=== PATIENT | male | born 1940 | race Caucasian/White ===

== ENCOUNTER 2016-07-11 15:59 | Observation (INO) | payer MEDICARE, OTHER ==
[~2016-07-11] VITALS: Ht 182.9 cm; Wt 99.2 kg
[2016-07-11 16:06] VITALS: BP 173/95; PULSE 88; RESP 16; O2SAT 98
--- NOTE | 2016-07-11 16:37 | ED.REPORT ---
HPI-General Illness Date of Service Jul 11, 2016 ED Provider: Dr. Beard Patient is a 75 year old male with stage 3 kidney disease, previous aortic valve replacement and mitral repair is referred to the ED by his PCP due to lightheadedness. He was driving to the gym at 1030 this morning when felt as though he would lose consciousness. He pulled over and waited for 15 minutes before continuing to drive to the gym. He is unsure if he passed out entirely during that time. The patient completed a light work out but had a general feeling of being unwell throughout, including nausea. When he took his blood pressure and heart rate 1.5 hours after his near syncopal episode, both were normal. He denies chest pain, abnormal shortness of breath, abdominal pain, dysuria, diaphoresis, hematemesis, black stools or bloody stools. He takes aspirin daily but denies use of any other blood thinners. Nursing Notes Stated Complaint: HEART Chief Complaint: General Complaint Nursing Notes Reviewed: Yes Allergies: Coded Allergies: No Known Allergies (Unverified , 07/11/16) Scheduled Amlodipine (Amlodipine) 5 Mg Tablet 5 MG PO HS Aspirin (Aspirin) 325 Mg Tablet 325 MG PO DAILYWD Carvedilol (Carvedilol) 12.5 Mg Tablet 12.5 MG PO BIDWM Cholecalciferol (Vitamin D3) (Vitamin D3) 2,000 Unit Tablet 2,000 UNIT PO QAM Dextran 70/Hypromellose (Nature's Tears Eye Drops) 0.1 %-0.3 % Drops 2 DROP BOTH _EYES QAM Finasteride (Finasteride) 5 Mg Tablet 5 MG PO HS Fish Oil/Dha/Epa (Fish Oil 1,200 mg Fish Oil) 1 Each Capsule 1 EACH PO QAM Furosemide (Furosemide) 40 Mg Tablet 40 MG PO QAM Indomethacin (Indomethacin) 50 Mg Capsule 50 MG PO BIDWM Multivit with Calcium,Iron,Min (Therapeutic M) 1 Each Tablet 1 EACH PO QAM Niacin (Inositol Niacinate) (Niacin 500 mg Capsule) 500 Mg Capsule 1,000 MG PO DAILYWD FLUSH FREE Pantoprazole DR (Pantoprazole DR) 40 Mg Tablet.dr 40 MG PO BIDWM Potassium Chloride (Potassium Chloride) 20 Meq Tab.er.prt 20 MEQ PO QAM Red Yeast Rice (Red Yeast Rice) 600 Mg Capsule 600 MG PO HS Tamsulosin ER (Tamsulosin ER) 0.4 Mg Cap.er.24h 0.8 MG PO HS Scheduled PRN Acetaminophen (Acetaminophen) 325 Mg Tablet 650 MG PO Q4H PRN PRN For Fever Hydrocortisone Acetate (Hydrocortisone) 28 Gm Oint...g. 1 APPLIC TP Q48H PRN PRN For Itching Zolpidem (Zolpidem) 10 Mg Tablet 10 MG PO HS PRN PRN For Sleep General Time Seen by MD: 16:36 Chief Complaint Other (Lightheadedness) Hx Obtained From: Patient Arrived By: Walk-in Sudden in Onset?: Yes Onset Occurred: 9 - 12 hours ago Recent Healthcare: No recent hospitalization, Recent doctor visit Similar Sx Previous: No Past Medical History Past Medical History Ulcer Cateracts Arthritis Normal echogram Stage 3 kidney disease Gout Reports: GERD, Hypertension Past Surgical History Aortic and mitral valve replacement surgery. Open heart surgery 12/2013. Ambulatory Status Independent Review of Systems Full Review of Systems Respiratory: Denies: Shortness of breath (not more than baseline) Cardiovascular: Denies: Chest pain GI: Reports: Nausea, Denies: Abdominal pain, Bloody/tarry stool Male: Denies Dysuria Skin: Denies Rash Neurologic: Reports: Lightheaded, Syncope (possible) Complete sys rev & neg: except as marked. Physical Exam Vital Signs Vital Signs Date Time Temp Pulse Resp B/P Pulse Ox O2 Delivery O2 Flow Rate FiO2 07/11/16 17:22 87 16 157/97 97 Room Air 07/11/16 17:11 79 14 150/82 97 Room Air 07/11/16 16:06 36.7 88 16 173/95 98 Room Air Initial VS: Reviewed General/Constitutional: Well-developed Head / Eyes: Atraumatic, Normocephalic, PERRL Skin: Warm, Dry, No cyanosis Neurologic: Alert, Oriented Psychiatric: Mood/affect normal, Behavior normal ENT: Atraumatic, Airway patent, Mucous membranes moist Neck: Atraumatic, Supple, Full range of motion Respiratory / Chest: Atraumatic, Breath sounds NL, Breath sounds = bilat, No respiratory distress midline thoracotomy scar Cardiovascular: Heart rate NL, Regular rhythm, Heart sounds NL no cords no peripheral edema Abdomen: Soft, Non-tender, BS normoactive no mass Interpretation & Diagnostics Lab Results Interpretation Result Diagram: 07/11/16 9903 07/11/16 1655 Test 07/11/16 16:55 White Blood Count 5.5th/mm3 (3.8-10.1) Red Blood Count 4.54mil/mm3 (4.40-5.80) Hemoglobin 14.2g/dL (13.8-17.2) Hematocrit 41.8% (41.0-50.0) Mean Corpuscular Volume 92.1fL (81-100) Mean Corpuscular Hemoglobin 31.3pg (27.0-35.0) Mean Corpuscular Hemoglobin Concent 34.0% (32.0-37.0) Red Cell Distribution Width 12.9% (12.3-15.4) Platelet Count 121bil/L (150-400) Neutrophils (%) (Auto) 60.4% (40-74) Lymphocytes (%) (Auto) 22.6% (14-46) Monocytes (%) (Auto) 13.3% (4-12) Eosinophils (%) (Auto) 3.1% (0-5) Basophils (%) (Auto) 0.4% (0-3) Sodium Level 139mEq/L (134-144) Potassium Level 4.9mEq/L (3.5-5.2) Chloride Level 102mEq/L (97-108) Carbon Dioxide Level 21mmol/L (18-29) Blood Urea Nitrogen 51mg/dL (8-27) Creatinine 2.30mg/dL (0.76-1.27) Estimat Glomerular Filtration Rate 30mL/min (>59) Glucose Level 118mg/dL (60-99) Lactic Acid Level 0.9mmol/L (0.4-2.0) Calcium Level 9.4mg/dL (8.5-10.1) Magnesium Level 2.6mg/dL (1.6-2.6) Total Bilirubin 0.3mg/dL (0.0-1.2) Aspartate Amino Transf (AST/SGOT) 20U/L (0-50) Alanine Aminotransferase (ALT/SGPT) 15U/L (0-44) Alkaline Phosphatase 65U/L (25-160) Troponin T < 0.010ug/L (0.0-0.011) Pro-B-Type Natriuretic Peptide 586.7pg/mL (0-486) Total Protein 7.2g/dL (6.4-8.4) Albumin 4.5g/dL (3.4-5.0) ECG Interpretation ECG Interpretation: Sinus rhythm Incomplete right bundle branch block Prolonged QT interval Time: 16:58 Interpreted by: ED physician Normal ECG Interpretation: Normal rate (81) X-Ray Chest Interpretation Chest Xray Interpretation: IMPRESSION: No acute process. Dictated by: Jovita Rodgers M.D. on 07/11/2016 at 17:39 Approved by: Jovita Rodgers M.D. on 07/11/2016 at 17:39 View: Portable, 1 view Interpretation / Wet Read by: Interpret - Radiologist Re-Eval/Medical Decision Med Decision/Clinical Course 75 year old male with syncopal event earlier today. Normal rhythm, not orthostatic, not infected. Given known structural heart diseasase will admit for obs on monitor. Pt is FULL CODE per my discussion with him today. Time of Eval: 18:14 Patient Status: Condition improved Re-Evaluation/Progress Note: Patients condition and lab results are discussed. Plan to adimt is discussed and the patient understands and agrees with the plan. All questions have been answered at this time. Consultation : Referral / Consult Name: Christiano Owens MD Consulted With: Hospitalist Call Returned at: 19:12 Hospital Security Officer: Will see patient, Agrees with plan, Accepts admit Note: Hospitalist is consulted and patient's case is discussed. He agrees to admit. Counseled Regarding: Diagnosis, Lab results, Need for admission Discharge & Departure Primary Impression: Syncope Syncope type: unspecified Qualified Code: R55 - Syncope and collapse Disposition: ADMITTED TO HOSPITAL Discharge Condition All VS Reviewed: Yes Condition: Stable Referrals: Abel Marquis MD (PCP) Scribe Attestation Portions of this note were transcribed by Sharath Winchester and Abelino Momin. I, Dr. Beard personally performed the history, physical exam and medical decision- making; I reviewed and confirmed the accuracy of the information in the transcribed note. Signed by: Sharath Winchester and Abelino Momin, Federicoibe, 2015 and 2117. copies to: Abel Marquis MD, Donald L MD Jul 11, 2016 16:37 Sharath Winchester Jul 11, 2016 16:45 ABELINO MOMIN Jul 11, 2016 19:49
[2016-07-11 17:01] LABS: BASOPHILS % (AUTO) 0.4 % (0-3); EOSINOPHILS % (AUTO) 3.1 % (0-5); MONOCYTES % (AUTO) 13.3 % (4-12); Mean Corpuscular Hemoglobin 31.3 pg (27.0-35.0); Mean Corpuscular Volume 92.1 fL (81-100); NEUTROPHILS % (AUTO) 60.4 % (40-74); Platelet Count 121 bil/L (150-400)
[2016-07-11 17:11] VITALS: BP 150/82; PULSE 79; RESP 14; O2SAT 97
[2016-07-11 17:22] VITALS: BP 157/97; PULSE 87; RESP 16; O2SAT 97
[2016-07-11 17:22] LABS: TROPONIN T < 0.010 ug/L (0.0-0.011)
[2016-07-11 17:33] LABS: Magnesium 2.6 mg/dL (1.6-2.6)
--- NOTE | 2016-07-11 17:41 | DRSVH ---
PROCEDURE: X-RAY CHEST ONE VIEW, PORTABLE ([id number]) INDICATIONS: syncope, Hx CHF and cardiac disease TECHNIQUE: One view of the chest was acquired. COMPARISON: [facility], CR, XR CHEST 1VW, 03/01/2015, 11:18. FINDINGS: Surgical changes and devices: Median sternotomy. Lungs and pleura: No pneumothorax. No change in right costophrenic angle blunting. Lungs are clear. Mediastinum: Mediastinal contours appear normal. Heart size is normal. Bones and chest wall: No suspicious bony lesions. Overlying soft tissues appear unremarkable. IMPRESSION: No acute process. Dictated by: Jovita Rodgers M.D. on 07/11/2016 at 17:39 Approved by: Jovita Rodgers M.D. on 07/11/2016 at 17:39
[2016-07-11] MEDS ORDERED: INDO50CA PO (18:43)
[2016-07-11] MEDS ORDERED: ASPI325T32 PO (18:43)
[2016-07-11] MEDS ORDERED: ZOLP10TA5 PO (18:43)
[2016-07-11] MEDS ORDERED: AMLO5TAB2 PO (18:43)
[2016-07-11] MEDS ORDERED: CARV12.52 PO (18:43)
[2016-07-11] MEDS ORDERED: FINA5TAB9 PO (18:43)
[2016-07-11] MEDS ORDERED: NIAC1CAP PO (18:43)
[2016-07-11] MEDS ORDERED: FURO40TA4 PO (18:43)
[2016-07-11] MEDS ORDERED: PANT40TA3 PO (18:43)
[2016-07-11] MEDS ORDERED: POTA20TA16 PO (18:43)
[2016-07-11] MEDS ORDERED: TAMS0.4C29 PO (18:43)
[2016-07-11 19:20] VITALS: BP 154/84; PULSE 79; RESP 14; O2SAT 96
[2016-07-11] MEDS ORDERED: Alum-Mag Hydrox-Simeth 30 mL Suspension PO PRN ×2 (19:25→20:00)
[2016-07-11] MEDS ORDERED: Ondansetron 2 mg/mL 2 mL Inj IVPUSH PRN ×2 (19:25→20:00)
[2016-07-11] MEDS ORDERED: RED600CA2 PO (19:36)
[2016-07-11] MEDS ORDERED: MULT-140 PO (19:36)
[2016-07-11] MEDS ORDERED: FISH1CAP15 PO (19:36)
[2016-07-11] MEDS ORDERED: CHOL200025 PO (19:36)
[2016-07-11] MEDS ORDERED: ACET325T51 PO (19:37)
[2016-07-11] MEDS ORDERED: DEXT15DR24 BOTH_EYES (19:37)
[2016-07-11] MEDS ORDERED: HYDR28OI2 TP (19:37)
[2016-07-11] MEDS ORDERED: Polyethylene Glycol (PEG) 17 Gm Powder PO PRN (20:00)
[2016-07-11 20:09] VITALS: PULSE 87
[2016-07-11 20:25] VITALS: BP 164/88; PULSE 89; RESP 17; O2SAT 97
--- NOTE | 2016-07-11 20:37 | PCM.HPMED ---
Subjective Date of Service Jul 11, 2016 Primary Provider: Admitting Physician: Christiano Owens MD Primary Care Physician: Abel Marquis MD Attending Physician: Christiano Owens MD Admit Status: From the Emergency Department Chief Complaint: Pre-syncope History of Present Illness: Pleasant 75yo man with history of Valvular HD s/p AV replacement, MV repair, Maze Procedure all in 2013, CKD3, Gout, ARTUR not treated, HTN, HLD, BPH presented to our ER with his sister as a walk-in after his PCP, Dr Cirilo Marquis in [place] recommended he be seen emergently for lightheadedness. He was going to the gym this morning and had to pulley maintainer because he was so lightheaded that driving felt unsafe, after 15 minutes he continued to the gym, did a light upper body workout with his dolphin trainer and realized then he could not drive home, felt again very lightheaded and nauseous, and called his sister. They called the doctor who said come in to the ER. He reports occasional lightheadedness but nothing like this. At rest he is basically asymptomatic in the ER, but does report that for 5 months or so he feels nauseous after any exertion. He denies headache, dysphagia, chest pain, shortness of breath, abdominal pain, nausea, vomiting, diarrhea, constipation, changes in his stool, black or bloody stool, chronic pain. He does have chronic mild BPH slow stream. BP in ER was 173/95 initially but has improved to 164/88. He reports daily BP measurement at home with values of 120s/80s Review of Systems: Complete ROS is otherwise negative except as noted above in the HPI. Allergies Coded Allergies: No Known Allergies (Unverified , 07/11/16) Home Medications Scheduled Amlodipine (Amlodipine) 5 Mg Tablet 5 MG PO HS Aspirin (Aspirin) 325 Mg Tablet 325 MG PO DAILYWD Carvedilol (Carvedilol) 12.5 Mg Tablet 12.5 MG PO BIDWM Cholecalciferol (Vitamin D3) (Vitamin D3) 2,000 Unit Tablet 2,000 UNIT PO QAM Dextran 70/Hypromellose (Nature's Tears Eye Drops) 0.1 %-0.3 % Drops 2 DROP BOTH _EYES QAM Finasteride (Finasteride) 5 Mg Tablet 5 MG PO HS Fish Oil/Dha/Epa (Fish Oil 1,200 mg Fish Oil) 1 Each Capsule 1 EACH PO QAM Furosemide (Furosemide) 40 Mg Tablet 40 MG PO QAM Indomethacin (Indomethacin) 50 Mg Capsule 50 MG PO BIDWM Multivit with Calcium,Iron,Min (Therapeutic M) 1 Each Tablet 1 EACH PO QAM Niacin (Inositol Niacinate) (Niacin 500 mg Capsule) 500 Mg Capsule 1,000 MG PO DAILYWD FLUSH FREE Pantoprazole DR (Pantoprazole DR) 40 Mg Tablet.dr 40 MG PO BIDWM Potassium Chloride (Potassium Chloride) 20 Meq Tab.er.prt 20 MEQ PO QAM Red Yeast Rice (Red Yeast Rice) 600 Mg Capsule 600 MG PO HS Tamsulosin ER (Tamsulosin ER) 0.4 Mg Cap.er.24h 0.8 MG PO HS Scheduled PRN Acetaminophen (Acetaminophen) 325 Mg Tablet 650 MG PO Q4H PRN PRN For Fever Hydrocortisone Acetate (Hydrocortisone) 28 Gm Oint...g. 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 External ears normal. Eyes: PERRLA, EOMI. Anicteric sclerae. Mouth: Mouth Normal, Mucous Membranes Moist/[place], extensive upper bridge work. Neck: Neck supple with full range of motion. Chest & Lungs: Clear to auscultation bilaterally with no crackles, wheezes, or rhonchi. Cardiovascular: Regular Rate/Rhythm, Normal S1, loud click S2, No Murmurs/Rubs/ Gallops Abdomen: Non-tender, protuberant, No masses, Normoactive bowel tones, Soft Musculoskeletal: Normal Range of Motion Extremities: No cyanosis/clubbing/edema bilaterally Neurological: Grossly Neurologically Intact, Cranial Nerves 2-12 Intact, Normal Speech, Strength Normal 4/4 ext, Normal Gait, Sensation Intact, Cerebellar Function nl Finger-Nose, Cerebellar Function nl Heel-[place], Reflexes Normal Lab and Diagnostics Labs Laboratory Tests Test 07/11/16 16:55 White Blood Count 5.5th/mm3 (3.8-10.1) Red Blood Count 4.54mil/mm3 (4.40-5.80) Hemoglobin 14.2g/dL (13.8-17.2) Hematocrit 41.8% (41.0-50.0) Mean Corpuscular Volume 92.1fL (81-100) Mean Corpuscular Hemoglobin 31.3pg (27.0-35.0) Mean Corpuscular Hemoglobin Concent 34.0% (32.0-37.0) Red Cell Distribution Width 12.9% (12.3-15.4) Platelet Count 121bil/L (150-400) Neutrophils (%) (Auto) 60.4% (40-74) Lymphocytes (%) (Auto) 22.6% (14-46) Monocytes (%) (Auto) 13.3% (4-12) Eosinophils (%) (Auto) 3.1% (0-5) Basophils (%) (Auto) 0.4% (0-3) Sodium Level 139mEq/L (134-144) Potassium Level 4.9mEq/L (3.5-5.2) Chloride Level 102mEq/L (97-108) Carbon Dioxide Level 21mmol/L (18-29) Blood Urea Nitrogen 51mg/dL (8-27) Creatinine 2.30mg/dL (0.76-1.27) Estimat Glomerular Filtration Rate 30mL/min (>59) Glucose Level 118mg/dL (60-99) Lactic Acid Level 0.9mmol/L (0.4-2.0) Calcium Level 9.4mg/dL (8.5-10.1) Magnesium Level 2.6mg/dL (1.6-2.6) Total Bilirubin 0.3mg/dL (0.0-1.2) Aspartate Amino Transf (AST/SGOT) 20U/L (0-50) Alanine Aminotransferase (ALT/SGPT) 15U/L (0-44) Alkaline Phosphatase 65U/L (25-160) Troponin T < 0.010ug/L (0.0-0.011) Pro-B-Type Natriuretic Peptide 586.7pg/mL (0-486) Total Protein 7.2g/dL (6.4-8.4) Albumin 4.5g/dL (3.4-5.0) Result Diagram: 07/11/165 07/11/16 165 X-Rays, CTs and MRIs CXR tonight with no acute process. 12-lead ECG Sinus rhythm Incomplete right bundle branch block Prolonged QT interval, QTc is 511 Assessment & Plan 75yo man with hx of valvular disease, s/p AV replacement, MV repair, Maze all in 2013, CKD3, HTN, HLD, Gout, BPH presents with two episodes of severe lightheadedness and nausea earlier today with no LOC. He was urged by his PCP to come in to the ER. 1. Pre-syncope, POA, stable. Lightheadedness without dizziness secondary to possible cardiac arrhythmia vs valvular dysfunction vs orthostatic hypotension from hypovolemia vs anemia (r/o already with healthy H/H) -Telemetry -Echocardiogram ordered for morning -Continue home medications: Carvedilol 12.mg PO BID, Aspirin 325mg PO BID -Orthostatics measurement ordered -Decide on continuing home Furosemide in the morning 2. HTN, POA, improving, asymptomatic -Continue home medication: amlodipine 5mg PO qhs 3. CKD3, POA, previous kidney function unknown to us at this point, presumed stable. Nursing will try to help patient get recent labs from patient's PCP patient portal. Other chronic condition: continue home medications: Indomethacin, Pantoprazole, Potassium Chliride, finasteride, Tamsulosin PRN medications available for nausea, heartburn, constipation: Ondansetron, Maalox, Senna, Miralax OBSERVATION: Patient is admitted under observation status with expected length of stay less than 2 midnights due to severity of presenting symptoms, risk of adverse event, and complexity of treatment plan. Pain Evaluation: Adequate Pain Control GI Prophylaxis: Proton Pump Inhibitor VTE Prophylaxis: Sub-Q Heparin (Unfractionated) Resuscitation Status: CPR: Attempt Resuscitation Attending Statement The patient was seen and examined together with Dr. Ely on 07/11 and I agree with the history, exam and plan as outlined in the note above. Jack Ely DO Jul 11, 2016 20:37 Christiano Owens MD Jul 12, 2016 06:50
[2016-07-11] MEDS: Heparin 5,000 Unit/mL Inj SUBQ SCH (21:23)
[2016-07-11] MEDS: Pantoprazole 40 mg ER24 Tablet PO SCH (21:24)
[2016-07-12 00:10] VITALS: BP 121/65; PULSE 77; RESP 16; O2SAT 98
--- NOTE | 2016-07-12 01:32 | NUR ---
Admit Note Pt. arrived to the floor from ED at 1999, accompanied by ED nurse via pacheco, Pt. ambulated to the bed independently with steady gait, A/O x3, calm and pleasant, oriented to the room, call light, BR and bed, placed Tele and SCDs per order , SL to right arm intact and patent, Pt. was seen by Dr. Owens around 2099, Pt. BP was initially high 188/66, given scheduled amlodipine, repeat BP of 121/64, denies pain, BAILEY,dizziness,N/V at this time, Call light in reach, hourly rounds, all needs attended.
[2016-07-12 04:15] VITALS: BP 122/78; PULSE 67; RESP 17; O2SAT 92
[2016-07-12 04:44] LABS: APPEARANCE,URINE CLEAR (CLEAR,HAZY); COLOR,URINE YELLOW (YELLOW); OCCULT BLOOD,URINE NEGATIVE (NEGATIVE); UROBILINOGEN,URINE NORMAL (NORMAL)
[2016-07-12] MEDS: Heparin 5,000 Unit/mL Inj SUBQ SCH ×2 (05:08→13:45)
[2016-07-12] MEDS: Indomethacin 25 mg Capsule PO SCH ×2 (08:00→08:46)
[2016-07-12 08:30] VITALS: BP 158/85; PULSE 85; RESP 20; O2SAT 97
[2016-07-12] MEDS ORDERED: Artificial Tears 15 mL Ophthalmic Solution BOTH_EYES SCH (08:30)
[2016-07-12] MEDS ORDERED: Potassium Chloride 20 mEq SR Tablet PO SCH (08:30)
[2016-07-12] MEDS: Pantoprazole 40 mg ER24 Tablet PO SCH (08:45)
--- NOTE | 2016-07-12 09:39 | NUR ---
Social Work: Initial Assessment Data: Pt is a 75 y/o male admitted for syncope. Pt's PCP is Dr Marquis, pt's insurance is Medicare with [employer]. EMR reviewed. Readmit score is 3. TRANSLATOR AND INTERPRETER met with pt at bedside, role explained. Pt states he lives in a two story home with his S/O where he uses no DME. Pt states he drives, has no hx of HH or SNF, no LTC or VA benefits, and is not a caregiver. Pt states he has a ride home when needed. No d/c planning needs anticipated at this time. TRANSLATOR AND INTERPRETER will continue to follow if needs arise. Assessment: Pt who is independent at baseline. Plan: Pt will d/c home via POV when medically stable. No d/c planning needs anticipated at this time. TRANSLATOR AND INTERPRETER will continue to follow if needs arise. GRICELDA Dumont Addendum: 07/12/16 at 0941 by RAND TOMAS Amended: Links added.
--- NOTE | 2016-07-12 10:19 | NUR ---
Case Management: RODGERS and Medicare Part D info given and explained to pt at bedside at 10:15 am. Questions answered. Signed original RODGERS placed on hard chart, copy given to pt. SANDRA Bearden RN
[2016-07-12 11:03] VITALS: PULSE 77
--- NOTE | 2016-07-12 15:21 | DRSVH ---
[facility] [address] [place] [address] Echocardiogram Report Name: GINA WHITE Date: 07/12/2016 Height: 72 in Hospital Exam Location: [facility] Weight: 219 lb Gender: Male BSA: 2.2 m2 : 1940 Age: 75 yrs BP: 122/78 mmHg Reason For Study: Syncope History: TV and MV repair, AVR-bioprosthetic Ordering Physician: Performed By: [facility] Interpretation Summary Normal left ventricle size with ejection fraction 55-60%. Normal right ventricle size with mildly reduced systolic function. Mildly dilated left atrium. Normal functioning bioprosthetic aortic valve. An annuloplasty ring is noted in the mitral position. Trace mitral regurgitation. An annuloplasty ring is noted in the tricuspid position. Mild tricuspid regurgitation. The right ventricular systolic pressure is estimated at least 38 mmHg assuming a right atrial pressure of 8 mm Hg. Comparison is made with the echocardiogram of 02/03/2013, aortic bioprosthetic valve, mitral and tricuspid annuloplasty rings are new. Procedure: A two-dimensional transthoracic echocardiogram with color flow and Doppler was performed. Comparison is made with the echocardiogram of 02/03/2013. The study quality was technically adequate. The patient was in normal sinus rhythm during the exam. Left Ventricle: The left ventricle is normal in size. There is normal left ventricular wall thickness. The ejection fraction is estimated to be 55-60%. There are no focal wall motion abnormalities. Diastolic function could not be accurately assessed due to confounding valvular disease. Right Ventricle: The right ventricle is normal size. Right ventricular systolic function is mildly reduced. Atria: The left atrium is mildly dilated. Right atrial size is normal. There is no Doppler evidence for an interatrial shunt. Mitral Valve: An annuloplasty ring is noted in the mitral position. There is trace mitral regurgitation. Aortic Valve: There is a bioprosthetic aortic valve. The prosthetic aortic valve is well-seated. The prosthetic aortic valve is not well visualized. The gradients through the prosthetic aortic valve are within the normal range for this type of valve. No aortic regurgitation is present. Tricuspid Valve: The tricuspid valve leaflets are thin and pliable. An annuloplasty ring is noted in the tricuspid position. There is mild tricuspid regurgitation. The right ventricular systolic pressure is estimated at least 38 mmHg assuming a right atrial pressure of 8 mm Hg. Pulmonic Valve: The pulmonic valve is not well visualized. Great Vessels: The aortic root is normal size. The ascending aorta is normal in size. The aortic arch is normal in size. The IVC is of normal diameter and collapses less than 50% with a sniff. This suggests a right atrial pressure of 8 mm Hg. Pericardium/ Pleura There is no pericardial effusion. MMode/2D Measurements & Calculations LVIDd: 5.5 cm RA long axis LVOT diam: 2.0 cm LVIDs: 4.2 cm LA A2 area: 22.6 cm Ao root diam FS: 23.2 % LA A4 area: 24.5 cm RA area EPSS: 1.8 cm LA length (vol) asc Aorta Diam IVSd: 0.60 cm : 14.4 cm LVPWd: 0.62 cm LA vol: 82.6 ml RA vol Ao Arch Diam (Prox LA vol index : 33.2 ml Trans): 2.9 cm RA : 15.0 mm2 IVC diam: 2.1 cm LV garcia. diameter/BSA LV sys. diameter/BSA RVD1 (basal) RVD2 (mid): 3.0 cm (cm/m^2): 2.5 (cm/m^2): 1.9 TAPSE: 1.1 cm Doppler Measurements & Calculations Ao V2 max MV E max gregg MV E/A: 2.0 TR max gregg : 173.1 cm/sec : 126.9 cm/sec Med Peak E' Gregg : 275.9 cm/sec Ao max PG MV A max gregg TR max PG : 12.0 mmHg : 62.4 cm/sec E/E' med: 23.7 : 30.4 mmHg Ao mean PG MV P1/2t: 57.8 msec Lat Peak E' Gregg PA V2 max : 63.0 cm/sec LVOT Max Gregg MVA(VTI): 2.1 cm2 E/E' lat: 16.8 PA mean PG : 80.7 cm/sec E/e' average: 20.2 PA Accel Time RENETTA(I,D): 1.4 cm : 0.11 sec sev ratio MV V2 mean MV P1/2t max gregg Ao V2 mean LV V1 max PG : 71.3 cm/sec : 134.2 cm/sec MV mean PG MVA(P1/2t): 3.8 cm2 Ao V2 VTI: 42.1 cm LV V1 VTI RENETTA(V,D): 1.4 cm2 : 19.3 cm MV V2 VTI MV dec time : 0.20 sec TV mean PG PA V2 mean RENETTA indexed to BSA : 1.3 mmHg : 52.7 cm/sec (cm^2/m^2): 0.63 Electronically signed by: Jeremie Bowman on Reading Physician:07/12/2016 02:55 PM
--- NOTE | 2016-07-12 15:49 | NUR ---
ONEL JHAVERI notified of results in the chart.
--- NOTE | 2016-07-12 15:55 | PCM.DIMED ---
Discharge Instructions Date of Service Jul 12, 2016 Dates of Hospitalization Jul 11, 2016 at 19:14 Discharge Diagnosis Discharge Diagnosis 1. Pre-syncope, POA, . Lightheadedness due to orthostatic hypotension from hypovolemia and UMM due to recent increment of lasix dose and UMM due to Indomethacin 2.UMM due to combination of recent increment of lasix dose and initiation of Indomethacin for gout 3. Recent gout attack 4. HTN, POA 5. CKD3, Test Results ECHO unremarkable Diet Low fat, Low Sodium, Heart Healthy Activity Limited until seen by PCP Call your provider Fever or Chills, Shortness of breath, Bleeding, Chest pain, Vomitting, Excessive diarrhea, Weakness (unilateral) Patient Instructions You were hospitalized due to Lightheadedness due to orthostatic hypotension from hypovolemia/dehydration and UMM due to recent increment of lasix dose and UMM due to Indomethacin . Please discontinue indomethacin and lower Lasix dose to prior dose of 20 mg by mouth daily. Please try to avoid using indomethacin for gout is the future as it can cause kidney injury again. You can discuss with PCP other options like colchicine and steroid. Your initial Cr 2.3 and improved to 1.97 in the morning . Keep rehydrated . Follow-up plan Please follow-up with PCP in 1 week Follow-up Provider: Abel Marquis MD Follow-up with PCP in: 1 week Jose Hugo MD Jul 12, 2016 15:55
--- NOTE | 2016-07-12 16:16 | PCM.DC.MED ---
Discharge Summary Date of Service Jul 12, 2016 Dates of Hospitalization Date of Hospital Admission Jul 11, 2016 at 19:14 Date of Discharge: Jul 12, 2016 Providers: Admitting Physician: Christiano Owens MD Primary Care Physician: Abel Marquis MD Attending Physician: Christiano Owens MD Diagnosis at Time of Discharge Diagnosis at Time of Discharge 1. Pre-syncope, POA, . Lightheadedness due to orthostatic hypotension from hypovolemia and UMM due to recent increment of lasix dose and UMM due to Indomethacin 2.UMM due to combination of recent increment of lasix dose and initiation of Indomethacin for gout 3. Recent gout attack 4. HTN, POA 5. CKD3, Consultations none Procedures XRay, CTs & MRIs CXR tonight with no acute process. ECG 12 Lead Sinus rhythm Incomplete right bundle branch block Prolonged QT interval, QTc is 511 Cardiac Echo Impression Interpretation Summary Normal left ventricle size with ejection fraction 55-60%. Normal right ventricle size with mildly reduced systolic function. Mildly dilated left atrium. Normal functioning bioprosthetic aortic valve. An annuloplasty ring is noted in the mitral position. Trace mitral regurgitation. An annuloplasty ring is noted in the tricuspid position. Mild tricuspid regurgitation. The right ventricular systolic pressure is estimated at least 38 mmHg assuming a right atrial pressure of 8 mm Hg. Comparison is made with the echocardiogram of 02/03/2013, aortic bioprosthetic valve, mitral and tricuspid annuloplasty rings are new. Brief History per HPI by Dr Owens Pleasant 75yo man with history of Valvular HD s/p AV replacement, MV repair, Maze Procedure all in 2013, CKD3, Gout, ARTUR not treated, HTN, HLD, BPH presented to our ER with his sister as a walk-in after his PCP, Dr Cirilo Marquis in [place] recommended he be seen emergently for lightheadedness. He was going to the gym this morning and had to kidney puller because he was so lightheaded that driving felt unsafe, after 15 minutes he continued to the gym, did a light upper body workout with his guide dog trainer and realized then he could not drive home, felt again very lightheaded and nauseous, and called his sister. They called the doctor who said come in to the ER. He reports occasional lightheadedness but nothing like this. At rest he is basically asymptomatic in the ER, but does report that for 5 months or so he feels nauseous after any exertion. He denies headache, dysphagia, chest pain, shortness of breath, abdominal pain, nausea, vomiting, diarrhea, constipation, changes in his stool, black or bloody stool, chronic pain. He does have chronic mild BPH slow stream. BP in ER was 173/95 initially but has improved to 164/88. He reports daily BP measurement at home with values of 120s/80s Hospital Course 75yo man with hx of valvular disease, s/p AV replacement, MV repair, Maze all in 2013, CKD3, HTN, HLD, Gout, BPH presents with two episodes of severe lightheadedness and nausea earlier today with no LOC. He was urged by his PCP to come in to the ER. 1. Pre-syncope, POA, stable. resolved - Lightheadedness due to orthostatic hypotension from hypovolemia and UMM due to recent increment of lasix dose and UMM due to Indomethacin . Patient states he increased his Lasix from 40 by mouth daily to 60 daily for 3 days prior to presentation, i.e. Sunday. He was also on indomethacin for recent gout left big toe. He presented his UMM creatinine 2.3 which improved to 1.9 overnight. Unknown baseline but no history of CKd. Advised to stop indomethacin. Gout resolved. Advised to use colchicine or prednisone in the future. Advised to lower Lasix to prior dose of 40 mg daily. -Telemetry unrevealing -Echocardiogram unremarkable -Continue home medications: Carvedilol 12.mg PO BID, Aspirin 325mg PO BID 2.UMM - due to recent increment of lasix dose and due to Indomethacin. Discontinue indomethacin as above 3. HTN, POA, improving, asymptomatic -Continue home medication: amlodipine 5mg PO qhs 4. Suspected CKD3, POA, previous kidney function unknown to us at this point, presumed stable. Other chronic condition: continue home medications: Indomethacin, Pantoprazole, Potassium Chliride, finasteride, Tamsulosin PRN medications available for nausea, heartburn, constipation: Ondansetron, Maalox, Senna, Miralax Patient ambulated with RN, no symptoms. Discharged home Condition on discharge stable Exam Vital Signs (Last) Date Time Temp Pulse Resp B/P Pulse Ox O2 Delivery O2 Flow Rate FiO2 07/12/16 11:03 77 07/12/16 08:30 36.3 20 158/85 97 Room Air Exam General: Alert, Oriented X3, Cooperative, No Acute Distress Head: Normocephalic, atraumatic. External ears normal. Eyes: PERRLA, EOMI. Anicteric sclerae. Mouth: Mouth Normal, Mucous Membranes Moist/[place], extensive upper bridge work. Neck: Neck supple with full range of motion. Chest & Lungs: Clear to auscultation bilaterally with no crackles, wheezes, or rhonchi. Cardiovascular: Regular Rate/Rhythm, Normal S1, loud click S2, No Murmurs/Rubs/ Gallops Abdomen: Non-tender, protuberant, No masses, Normoactive bowel tones, Soft Musculoskeletal: Normal Range of Motion Extremities: No cyanosis/clubbing/edema bilaterally Neurological: Grossly Neurologically Intact, Cranial Nerves 2-12 Intact, Normal Speech, Strength Normal / ext, Normal Gait, Sensation Intact, Cerebellar Function nl Finger-Nose, Cerebellar Function nl Heel-[place], Reflexes Normal Test 07/11/16 16:55 07/12/16 04:20 07/12/16 05:58 White Blood Count 5.5th/mm3 (3.8-10.1) Red Blood Count 4.54mil/mm3 (4.40-5.80) Hemoglobin 14.2g/dL (13.8-17.2) Hematocrit 41.8% (41.0-50.0) Mean Corpuscular Volume 92.1fL (81-100) Mean Corpuscular Hemoglobin 31.3pg (27.0-35.0) Mean Corpuscular Hemoglobin Concent 34.0% (32.0-37.0) Red Cell Distribution Width 12.9% (12.3-15.4) Platelet Count 121bil/L (150-400) Neutrophils (%) (Auto) 60.4% (40-74) Lymphocytes (%) (Auto) 22.6% (14-46) Monocytes (%) (Auto) 13.3% (4-12) Eosinophils (%) (Auto) 3.1% (0-5) Basophils (%) (Auto) 0.4% (0-3) Lactic Acid Level 0.9mmol/L (0.4-2.0) Magnesium Level 2.6mg/dL (1.6-2.6) Troponin T < 0.010ug/L (0.0-0.011) Pro-B-Type Natriuretic Peptide 586.7pg/mL (0-486) Urine Color Yellow (YELLOW) Urine Appearance Clear (CLEAR,HAZY) Urine pH 6.0 (5.0-8.0) Urine Specific [place] 1.010 (1.003-1.035) Urine Protein Negativemg/dL (NEG,TRACE) Urine Glucose (UA) Negativemg/dL (NEGATIVE) Urine Ketones Negativemg/dL (NEGATIVE) Urine Occult Blood Negative (NEGATIVE) Urine Nitrite Negative (NEGATIVE) Urine Bilirubin Negative (NEGATIVE) Urine Urobilinogen Normalmg/dL (NORMAL) Urine Leukocyte Esterase Negative (NEGATIVE) Urine RBC 0-2/hpf (0-2) Urine WBC 0-5/hpf (0-5) Urine Epithelial Cells Occasional/hpf (NONE-MOD) Urine Crystals None seen (NONE SEEN) Urine Bacteria None/hpf (NONE-FEW) Urine Hyaline Casts None/lpf (NONE) Urine Granular Casts None seen (NONE SEEN) Urine Waxy Casts None seen (NONE SEEN) Urine Red Blood Cell Casts None seen (NONE SEEN) Urine White Blood Cell Casts None seen (NONE SEEN) Urine Mucus None seen (None Seen) Urine Trichomonas None seen (NONE SEEN) Urine Yeast None (NONE SEEN) Urinalysis Comment None Urine Culture Reflexed Not indicated Sodium Level 142mEq/L (134-144) Potassium Level 4.4mEq/L (3.5-5.2) Chloride Level 105mEq/L (97-108) Carbon Dioxide Level 23mmol/L (18-29) Blood Urea Nitrogen 42mg/dL (8-27) Creatinine 1.97mg/dL (0.76-1.27) Estimat Glomerular Filtration Rate 36mL/min (>59) Glucose Level 104mg/dL (60-99) Calcium Level 9.1mg/dL (8.5-10.1) Total Bilirubin 0.5mg/dL (0.0-1.2) Aspartate Amino Transf (AST/SGOT) 17U/L (0-50) Alanine Aminotransferase (ALT/SGPT) 13U/L (0-44) Alkaline Phosphatase 50U/L (25-160) Total Creatine Kinase 82U/L (21-232) Total Protein 5.9g/dL (6.4-8.4) Albumin 3.9g/dL (3.4-5.0) Discharge Medications Discharge Medications Amlodipine (Amlodipine) 5 Mg Tablet 5 MG PO HS (Reported) Aspirin (Aspirin) 325 Mg Tablet 325 MG PO DAILYWD (Reported) Carvedilol (Carvedilol) 12.5 Mg Tablet 12.5 MG PO BIDWM (Reported) Cholecalciferol (Vitamin D3) (Vitamin D3) 2,000 Unit Tablet 2,000 UNIT PO QAM ( Reported) Dextran 70/Hypromellose (Nature's Tears Eye Drops) 0.1 %-0.3 % Drops 2 DROP BOTH _EYES QAM (Reported) Finasteride (Finasteride) 5 Mg Tablet 5 MG PO HS (Reported) Fish Oil/Dha/Epa (Fish Oil 1,200 mg Fish Oil) 1 Each Capsule 1 EACH PO QAM ( Reported) Furosemide (Furosemide) 40 Mg Tablet 40 MG PO QAM (Reported) Multivit with Calcium,Iron,Min (Therapeutic M) 1 Each Tablet 1 EACH PO QAM ( Reported) Niacin (Inositol Niacinate) (Niacin 500 mg Capsule) 500 Mg Capsule 1,000 MG PO DAILYWD (Reported) FLUSH FREE Pantoprazole DR (Pantoprazole DR) 40 Mg Tablet.dr 40 MG PO BIDWM (Reported) Potassium Chloride (Potassium Chloride) 20 Meq Tab.er.prt 20 MEQ PO QAM ( Reported) Red Yeast Rice (Red Yeast Rice) 600 Mg Capsule 600 MG PO HS (Reported) Tamsulosin ER (Tamsulosin ER) 0.4 Mg Cap.er.24h 0.8 MG PO HS (Reported) As needed Acetaminophen (Acetaminophen) 325 Mg Tablet 650 MG PO Q4H PRN PRN For Fever ( Reported) Hydrocortisone Acetate (Hydrocortisone) 28 Gm Oint...g. 1 APPLIC TP Q48H PRN PRN For Itching (Reported) Zolpidem (Zolpidem) 10 Mg Tablet 10 MG PO HS PRN PRN For Sleep (Reported) Followup Plan Disposition: Home Follow-up plan Please follow-up with PCP in 1 week Discharge Diet: Low fat, Low Sodium, Heart Healthy Discharge Activity: Limited until seen by PCP Patient Instructions You were hospitalized due to Lightheadedness due to orthostatic hypotension from hypovolemia/dehydration and UMM due to recent increment of lasix dose and UMM due to Indomethacin . Please discontinue indomethacin and lower Lasix dose to prior dose of 20 mg by mouth daily. Please try to avoid using indomethacin for gout is the future as it can cause kidney injury again. You can discuss with PCP other options like colchicine and steroid. Your initial Cr 2.3 and improved to 1.97 in the morning . Keep rehydrated . Follow-up Provider: Abel Marquis MD Follow-up with PCP in: 1 week copies to: Abel Marquis MD, Melaku MD Jul 12, 2016 16:16
--- NOTE | 2016-07-12 16:55 | NUR ---
Discharge Reviewed DC instructions with patient. Stated understanding All belongings taken. Pt ambulated out to private vehicle to home with friend.
[2016-07-12] MEDS ORDERED: Niacin SR 500 mg ER12 Tablet PO SCH (17:30)
== END 2016-07-12 16:40 | disposition home or self-care (01) ==
LOC: SED 15:59 → MOC 19:14
PROVIDERS: ADMIT Hospitalist; ATTEND Hospitalist
DX: I95.2 Hypotension due to drugs (principal); E86.1 Hypovolemia; N17.9 Acute kidney failure, unspecified; R55 Syncope and collapse; T50.1X5A Adverse effect of loop [high-ceiling] diuretics, initial encounter; T39.395A Adverse effect of other nonsteroidal anti-inflammatory drugs [NSAID], initial encounter; I12.9 Hypertensive chronic kidney disease with stage 1 through stage 4 chronic kidney disease, or unspecified chronic kidney disease; N18.3 Chronic kidney disease, stage 3 (moderate); M10.9 Gout, unspecified; K21.9 Gastro-esophageal reflux disease without esophagitis; H26.9 Unspecified cataract; Z95.2 Presence of prosthetic heart valve; Z79.82 Long term (current) use of aspirin; E78.5 Hyperlipidemia, unspecified; G47.33 Obstructive sleep apnea (adult) (pediatric)
CPT/HCPCS: 36415; 71010; 80053; 81000; 82550; 83605; 83735; 83880; 84484; 85025; 93005; 99285; C8929; G0378; J1644